=== PATIENT | male | born 1960 | race Caucasian/White ===

== ENCOUNTER 2023-08-25 00:14 | Emergency (ER) | payer OTHER, SELFPAY ==
[2023-08-25 00:17] VITALS: BP 131/88
--- NOTE | 2023-08-25 00:32 | ED.GENMED ---
History of Present Illness
<MY Severino - Last Filed: 08/25/23 04:20>
General
Chief Complaint: Nose Bleed
Source: patient
Exam Limitations: none
Time Seen by Provider: 08/25/23 00:25
Travel History
Have you had any contact with someone who has COVID-19?: No
Do you have any symptoms of coronavirus? Fever > 100 degrees, chills, cough, shortness of breath, sore throat, loss of taste or smell, muscle aches, or headache?: No
History of Present Illness
History of Present Illness:
This is a 63 yo male with no significant PMH presenting for epistaxis x 4 hours. This started spontaneously as a bleed from both nares and bleeding down his throat. He tried nasal packing and afrin with no relief.
He states he was seen 12 days ago by an ENT doctor for similar bleeding. He was diagnosed with a posterior arterial bleed with a nasal endoscopy and was cauterized. After cauterization, he did not experience any bleeding until today.
He states he had a CBC done recently which was normal. He denies fatigue and lightheadedness. He denies recent trauma to the head and neck. He does not take blood thinners
On physical, A/O x 3 in no acute distress. Patient holding a rag with spots of blood. Heart was normal rate and rhythm. Lung sounds clear to auscultation BL.
Plan: Balloon packing
Review of Systems
<MY Severino - Last Filed: 08/25/23 04:20>
Review of Systems
Allergies reviewed?: Yes
Phy Exam
<MY Severino - Last Filed: 08/25/23 04:20>
General Physical Exam
General Presentation: well appearing and no apparent distress
ENT Exam
ENT Exam: other (nosebleed, with dried blood in nasopharynx)
Course
<MY Severino - Last Filed: 08/25/23 04:20>
Vital Signs
Initial and Last Documented VS:
Initial Vital Signs
Temp Pulse Resp BP Pulse Ox
97.5 F 72 18 131/88 97
08/25/23 00:17 08/25/23 00:17 08/25/23 00:17 08/25/23 00:17 08/25/23 00:17
Last Documented Vital Signs
Temp Pulse Resp BP Pulse Ox
97.5 F 72 18 131/88 97
08/25/23 00:17 08/25/23 00:17 08/25/23 00:17 08/25/23 00:17 08/25/23 00:17
<Eladio Donohue DO - Last Filed: 08/25/23 01:16>
Vital Signs
Initial and Last Documented VS:
Initial Vital Signs
Temp Pulse Resp BP Pulse Ox
97.5 F 72 18 131/88 97
08/25/23 00:17 08/25/23 00:17 08/25/23 00:17 08/25/23 00:17 08/25/23 00:17
Last Documented Vital Signs
Temp Pulse Resp BP Pulse Ox
97.5 F 72 18 131/88 97
08/25/23 00:17 08/25/23 00:17 08/25/23 00:17 08/25/23 00:17 08/25/23 00:17
Procedures
<Eladio Donohue, DO - Last Filed: 08/25/23 01:16>
Nosebleed
Drug treatment: none
Treatment: Posterior balloon
Post treatment bleeding: none- good control
<MY Severino - Last Filed: 08/25/23 04:20>
*Critical Care Note
Total Time (30-74mins, 75-104mins- exclusive of procedures): Not Applicable
ED Attending Note
<MY Severino - Last Filed: 08/25/23 04:20>
-
Portions of this chart may have been created with voice recognition software.� Occasional wrong word or��sound alike� substitutions may have occurred due to the inherent limitations of voice recognition software.
<Eladio Donohue DO - Last Filed: 08/25/23 01:16>
ED Attending Note
Patient seen and examined by attending physician: Yes
I performed the substantive portion of visit, reviewed & personally made and approve the management plan that is documented in note by myself or DELVIS.: Yes
ED Attending Note:
I have seen and evaluated the patient with a [id number] encounter. I have spoken to the advance practicer provider and involved in the medical history, the physical exam, medical decision making.
Evaluation and management service: agree unless noted differently below.
Results interpretation: agree unless noted differently below.
Focused HPI: 63-year-old male presenting with resolving nosebleed. He states his nose started bleeding again earlier tonight so he took Afrin with good resolution of bleeding. He is concerned because he saw ENT last week and was diagnosed with a
posterior nosebleed that required multiple silver nitrate sticks. He denies being on blood thinners
Physical exam: Sitting in bed comfortably. No active bleeding. Dried blood noted to left nare
Medical Decision Making: I discussed my concern that this is a posterior nosebleed. I discussed that I would be unable to adequately cauterize the nose given that it is posterior. I did offer posterior nose packing. I did place a Rhino Rocket and
inflated the posterior aspect with 3 cc of air. Patient states he no longer feels the drip in the back of his throat. He states he is going to call his ENT tomorrow
Discharge Plan
Departure
Patient Disposition: Home (Routine Discharge)
Date of Disposition: 08/25/23
Time of Disposition: 01:11
Patient with high blood pressure during this ER visit?: No
Discharge Problem:
Epistaxis
Instructions: Nosebleeds (DC)
Activity Restrictions/Additional Instructions:
Please return for recurrent bleeding. Please call your ENT first thing tomorrow morning for follow-up.
Interventions
Interventions:
*Risk Screen - Suicide Last Done: 08/25/23 00:17
*Neglect/Abuse Screening Last Done: 08/25/23 00:17
*Nursing Disposition Last Done: 08/25/23 01:40
ED-EENT Assessment Last Done: 08/25/23 01:02
Discharge Date and Time
Discharge Date/Time: 08/25/23 01:40
Print Language: LATVIAN
== END 2023-08-25 01:40 | disposition home or self-care (01) ==
LOC: EMR 00:14
PROVIDERS: EMERGENCY PHYSICIAN Student in an Organized Health Care Education/Training Program; FAMILY PHYSICIAN Family Medicine
DX: R04.0 Epistaxis (principal)
CPT/HCPCS: 99282; 30901